=== PATIENT | male | born 1980 | race Caucasian/White ===

== ENCOUNTER 2017-07-26 03:00 | Emergency (ER) | payer OTHER ==
[~2017-07-26] VITALS: Ht 170.2 cm; Wt 80.7 kg
[~2017-07-26 03:00] MED LIST: ALPR0.5T8 PO; BUSP5TAB3 PO; CARB100T5 PO; IBUP-1955 PO
[2017-07-26 03:29] VITALS: BP 109/72
[2017-07-26] MEDS ORDERED: LIDOCAINE VISCOUS 2% UD 15 ML UDC ONE (04:06)
[2017-07-26] MEDS ORDERED: MAG HYDROX/AL HYDROX/SIMETH 30 ML UDC ONE (04:07)
[2017-07-26] MEDS ORDERED: MAG HYDROX/AL HYDROX/SIMETH 30 ML UDC PO ONE (04:30)
[2017-07-26] MEDS ORDERED: LIDOCAINE VISCOUS 2% UD 15 ML UDC MM ONE (04:30)
== END 2017-07-26 04:48 | disposition home or self-care (01) ==
LOC: ER 03:04
DX: K25.9 Gastric ulcer, unspecified as acute or chronic, without hemorrhage or perforation (principal); R10.13 Epigastric pain; G89.29 Other chronic pain
CPT/HCPCS: A4606; Z7610

== ENCOUNTER 2022-04-06 19:59 | Emergency (ER) | payer BC, MEDICAID ==
[~2022-04-06] VITALS: Ht 165.1 cm; Wt 83.5 kg
--- NOTE | 2022-04-06 20:25 | NUR ---
[id number] FROM HOME; FAMILY C/O AMS COULDNT WAKE HIM UP. 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 UPON ARRIVAL A/OX3
--- NOTE | 2022-04-06 20:26 | NUR ---
PT REFUSED CT SCAN
--- NOTE | 2022-04-06 20:26 | NUR ---
PT REFUSED BLOODWORK
--- NOTE | 2022-04-06 20:29 | NUR ---
Raya garcia in [place] - 04/06/22 at 2038 by JIGAR PT TAKEN TO CT VIA DEBBIE
--- NOTE | 2022-04-06 20:38 | NUR ---
Patient does not wish to proceed with medical care recommended by Dr. Hurst. Patient given information related to possible complications, up to and including , which could occur as a result of leaving the hospital at this time. Patient verbalizes understanding of risks involved due to leaving against medical advice. Patient has signed AMA form.
[2022-04-06 20:47] VITALS: BP 128/70
== END 2022-04-06 20:47 | disposition left against medical advice (07) ==
LOC: ER 20:00
DX: R47.81 Slurred speech (principal); Z79.899 Other long term (current) drug therapy
CPT/HCPCS: 71045-TC